=== PATIENT | male | born 1980 | race African-American/Black ===

== ENCOUNTER 2024-07-21 06:36 | Day surgery (SDC) | payer OTHER ==
[2024-07-20 09:22] VITALS: BMI 24.0
[2024-07-21] MEDS ORDERED: MIDAZOLAM HCL 2 MG/2 ML SINGLE DOSE VIAL ONE (07:35)
[2024-07-21 08:18] VITALS: TEMP 97.7
[2024-07-21 08:38] VITALS: BP 110/61; PULSE 74; RESP 19
== END 2024-07-21 09:24 | disposition home or self-care (01) ==
LOC: JASU-ENDO 06:36
PROVIDERS: ATTEND Internal Medicine Gastroenterology
PROC: 0DBN8ZX Excision of Sigmoid Colon, Via Natural or Artificial Opening Endoscopic, Diagnostic (ICD-10-PCS; principal; 2024-07-21 07:30)
DX: K51.911 Ulcerative colitis, unspecified with rectal bleeding (principal)
CPT/HCPCS: 88305-TC; 88342-TC